=== PATIENT | female | born 1985 ===

== ENCOUNTER → 2017-07-10 | Outpatient (CLI) | payer OTHER ==
[~2017-07-10] MED LIST: Evening Primro500 MG PO; IBUP800 PO; OXYACE5T PO
== END | disposition home or self-care (01) ==
LOC: LAB SHORT 14:27 → PLD 14:27
DX: D22.39 Melanocytic nevi of other parts of face (principal)
CPT/HCPCS: 88305

== ENCOUNTER → 2020-06-10 | Outpatient (CLI) | payer OTHER ==
[~2020-06-10] MED LIST changes: +ESCI20 PO; +PRENATAL TABLE1 EAC2 PO
== END | disposition home or self-care (01) ==
LOC: LAB SHORT 11:56
DX: O40.3XX0 Polyhydramnios, third trimester, not applicable or unspecified (principal)
CPT/HCPCS: 36415; 83036

== ENCOUNTER → 2020-06-25 | Outpatient (CLI) | payer OTHER | LOC: LAB 10:00 → LAB SHORT 10:00 | DX: O09.893 Supervision of other high risk pregnancies, third trimester (principal) | CPT/HCPCS: 87081; 87150 ==

== ENCOUNTER 2020-07-29 06:05 | Inpatient (IN) | payer OTHER ==
[~2020-07-29] VITALS: Ht 147.3 cm; Wt 69.0 kg
[~2020-07-29 06:05] MED LIST changes: -ESCI20 PO; -PRENATAL TABLE1 EAC2 PO
[2020-07-29] MEDS ORDERED: ESCI20 PO (06:26)
[2020-07-29] MEDS ORDERED: PRENATAL TABLE1 EAC2 PO (06:26)
[2020-07-29 06:44] LABS: BASOPHILS ABSOLUTE AUTO 0.07 K/mm3 (0.00-0.23); BASOPHILS PERCENT AUTO 1 % (0-2); EOSINOPHILS ABSOLUTE AUTO 0.09 K/mm3 (0.00-0.68); EOSINOPHILS PERCENT AUTO 1 % (0-6); Hematocrit 33.7 % (33.0-51.0); Hemoglobin 10.9 g/dL (11.5-16.0); IMMATURE GRAN ABSOLUTE AUTO 0.04 K/mm3 (0.00-0.10); IMMATURE GRAN PERCENT AUTO 1 % (0-1); LYMPHOCYTES ABSOLUTE AUTO 2.36 K/mm3 (0.84-5.20); LYMPHOCYTES PERCENT AUTO 28 % (21-46); MONOCYTES PERCENT AUTO 7 % (4-13); Mean Corpuscular HGB 28.3 pg (26.0-34.0); Mean Corpuscular HGB Conc 32.3 g/dL (31.5-36.5); Mean Corpuscular Volume 88 fL (80-100); Mean Platelet Volume 12.8 fL (9.1-12.4); NEUTROPHILS ABSOLUTE AUTO 5.34 K/mm3 (1.96-9.15); NEUTROPHILS PERCENT AUTO 63 % (41-73); Platelet Count 123 K/mm3 (150-400); Red Blood Cell Count 3.85 M/mm3 (3.80-5.20)
--- NOTE | 2020-07-29 15:42 | NUR ---
RN/LC ROUNDED TO HELP W/ . 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 INSTRUCTED PT ON CORRECT POSITIONING, LATCHING AND NIPPLE SHAPE AFTER FEEDS. INSTRUCT/DEMO HAND EXPRESSION OF COLOSTRUM. REVIEWED GUIDE TO W/ PT. PT DENIES ANY FURTHER QUESTIONS OR CONCERNS. FURTHER LC OFFERED, WILL ATTEMPT TO ROUND AGAIN IN THE MORNING.
[2020-07-30 06:11] LABS: Hemoglobin 9.1 g/dL (11.5-16.0); Mean Corpuscular HGB 28.2 pg (26.0-34.0); Mean Corpuscular HGB Conc 31.4 g/dL (31.5-36.5); Mean Corpuscular Volume 90 fL (80-100); Mean Platelet Volume 12.3 fL (9.1-12.4); Platelet Count 112 K/mm3 (150-400); RDW Coefficient Variation 13.2 % (11.7-14.2); RDW Standard Deviation 43.6 fL (35.1-46.3); Red Blood Cell Count 3.23 M/mm3 (3.80-5.20); White Blood Cell Count 9.98 K/mm3 (4.00-11.30)
--- NOTE | 2020-07-30 08:25 | NUR ---
RN/LC ROUNDED TO HELP W/ . PT STATES SHE ASKED FOR A SHIELD DURING THE NIGHT BECAUSE LATCHING WAS VERY PAINFUL. PT STATES THAT W/ EVERY BABY THIS IS HOW BRF/LATCHING STARTS OUT FOR HER. RN TALKED W/ PT ABOUT WEANING OFF OF SHIELD. FURTHER LC OFFERED IN CLINIC. PT DENIES ANY FURTHER QUESTIONS OR CONCERNS.
--- NOTE | 2020-07-30 09:06 | NUR ---
DISCHARGE MOTHER EDUCATED ON AND RECEIVED PRINTED DISCHARGE INSTRUCTIONS AND VERBALIZED AN UNDERSTANDING. NO NEW RX. IV PREVIOUSLY DC'D. GATHERING PERSONAL BELONGINGS. PLANNING TO DISCHARGE HOME LATER THIS MORNING.
--- NOTE | 2020-07-30 09:56 | NUR ---
BANDS MATCH BABY.
== END 2020-07-30 10:30 | disposition home or self-care (01) | DRG 807 ==
LOC: OBS 06:05 → BC 06:07 → OBS 06:13 → BC 06:15
PROVIDERS: ADMIT Advanced Practice Midwife
PROC: 10E0XZZ Delivery of Products of Conception, External Approach (ICD-10-PCS; principal; 2020-07-29)
DX: O40.3XX0 Polyhydramnios, third trimester, not applicable or unspecified (principal); Z37.0 Single live birth; O70.1 Second degree perineal laceration during delivery; Z3A.40 40 weeks gestation of pregnancy; Z20.822 Contact with and (suspected) exposure to COVID-19; O43.193 Other malformation of placenta, third trimester; O99.344 Other mental disorders complicating childbirth; F41.8 Other specified anxiety disorders
CPT/HCPCS: 36415; 85025; 85027; 86850; 86900; 86901; A9270; J2210; J2590; J7120